=== PATIENT | male | born 1960 | race African-American/Black ===

== ENCOUNTER → 2018-03-05 | Outpatient (CLI) | payer MEDICARE, MEDICAID | END | disposition home or self-care (01) | LOC: US 08:42 | PROVIDERS: ATTEND Specialist | DX: E07.89 Other specified disorders of thyroid (principal) | CPT/HCPCS: 76536 ==

== ENCOUNTER 2019-05-15 05:43 | Day surgery (SDC) | payer MEDICARE, OTHER ==
[~2019-05-15] VITALS: Ht 182.9 cm; Wt 77.1 kg
[2019-05-15 06:30] LABS: CHLORIDE 101 mEq/L (98-107)
[2019-05-15] MEDS ORDERED: LACTATED RINGERS 1,000 ML IV SCH (06:30)
[2019-05-15 06:33] LABS: INR 1.1; PROTHROMBIN TIME 11.4 sec (9.6-11.0)
[2019-05-15 06:35] LABS: BASOPHILS % 0.4 % (0.0-2.0); EOSINOPHILS % 0.9 % (0.0-5.0); HEMATOCRIT. 40.4 % (42.0-52.0); HEMOGLOBIN. 12.7 g/dL (14.0-18.0); LYMPHOCYTES % 22.8 % (20.0-50.0); MEAN CORPUSCULAR HEMOGLOBIN 23.6 pg (28.0-32.0); MEAN CORPUSCULAR VOLUME 75.2 fL (80.0-94.0); MEAN PLATELET VOLUME 7.7 fl (7.4-10.4); MONOCYTES % 12.2 % (2.0-8.0); NEUTROPHILS % 63.7 % (40.0-76.0); PLATELET 569 x1000/uL (130-400); RED BLOOD CELL COUNT 5.38 mill/uL (4.7-6.1); RED CELL DISTRIBUTION WIDTH 20.5 % (11.6-14.6)
[2019-05-15] MEDS ORDERED: DIFL5DRO EACHEYE (07:16)
[2019-05-15] MEDS ORDERED: BRIM10DR2 EACHEYE (07:16)
[2019-05-15] MEDS ORDERED: LATA2.5D2 EACHEYE (07:16)
[2019-05-15] MEDS ORDERED: MESA800T PO (07:16)
[2019-05-15] MEDS ORDERED: AZOPT EACHEYE (07:16)
[2019-05-15] MEDS ORDERED: HYDR12.54 PO (07:16)
[2019-05-15] MEDS ORDERED: BUPIVACAINE HCL 0.5% (5MG/ML) 50ML ONE (07:19)
[2019-05-15] MEDS ORDERED: BACITRACIN 50,000 UNITS/VIAL ONE (07:19)
[2019-05-15] MEDS ORDERED: LIDOCAINE HCL 1% 20ML VIAL (Pyxis) INJ ONE (07:19)
[2019-05-15] MEDS ORDERED: SKIN ADHESIVE 0.7 GM EA TOP ONE (07:20)
[2019-05-15] MEDS ORDERED: MIDAZOLAM HCL 2 MG/2 ML VIAL ONE (07:36)
[2019-05-15] MEDS ORDERED: ROCURONIUM BROMIDE 10MG/ML VIAL 5ML IV ONE (07:36)
[2019-05-15] MEDS ORDERED: PROPOFOL 200MG/20ML VIAL IV ONE (07:36)
[2019-05-15] MEDS ORDERED: FENTANYL CITRATE/PF 50MCG/ML 2ML VIAL ONE ×2 (07:36→08:32)
[2019-05-15] MEDS ORDERED: NEOSTIGMINE METHYLSULFATE 1MG/ML 10 ML VIAL ONE (07:36)
[2019-05-15] MEDS ORDERED: GLYCOPYRROLATE 0.2 MG/ML 2ML VIAL ONE (07:36)
[2019-05-15] MEDS ORDERED: SODIUM CHLORIDE 0.9% 10ML VIAL ONE (07:37)
[2019-05-15] MEDS ORDERED: SUCCINYLCHOLINE CHLORIDE 200MG/10ML IV ONE (07:37)
[2019-05-15] MEDS ORDERED: CEFAZOLIN SODIUM 1000MG/VIAL ONE (07:37)
[2019-05-15] MEDS ORDERED: LIDOCAINE HCL/PF 1% 10 MG/ML 5ML VIAL ONE (07:37)
[2019-05-15] MEDS ORDERED: PHENYLEPHRINE HCL 10 MG/ML 1ML (IV VIAL) IV ONE (07:37)
[2019-05-15] MEDS ORDERED: EPHEDRINE SULFATE 50MG/ML VIAL ONE (07:37)
[2019-05-15] MEDS ORDERED: METOCLOPRAMIDE HCL 10MG/2ML VIAL ONE (07:37)
[2019-05-15] MEDS ORDERED: ONDANSETRON HCL 4MG/2ML INJ ONE (07:37)
== END 2019-05-15 11:15 | disposition home or self-care (01) ==
LOC: OR 05:43
PROVIDERS: ATTEND Specialist
DX: K40.31 Unilateral inguinal hernia, with obstruction, without gangrene, recurrent (principal); I10 Essential (primary) hypertension; I25.10 Atherosclerotic heart disease of native coronary artery without angina pectoris; D64.9 Anemia, unspecified; Z79.899 Other long term (current) drug therapy; Z88.8 Allergy status to other drugs, medicaments and biological substances; Z98.890 Other specified postprocedural states
CPT/HCPCS: 36415; 49521; 80048; 85025; 85610; 88304; C1781; J0330; J0690; J2250; J2405; J2704; J2765; J3010; J3490; J2370; J2710